=== PATIENT | female | born 1985 | race Caucasian/White ===

== ENCOUNTER → 2021-10-25 00:01 | Outpatient (CLI) | payer OTHER, SELFPAY ==
[2021-10-25 16:46] LABS: SARS-CoV-2 RNA PCR Negative
== END ==
PROVIDERS: Visit Provider Obstetrics & Gynecology Gynecologic Oncology
DX: Z01.812 Encounter for preprocedural laboratory examination (principal); Z20.822 Contact with and (suspected) exposure to COVID-19
CPT/HCPCS: C9803; U0003; U0005

== ENCOUNTER 2021-10-25 09:02 | Outpatient (CLI) | payer OTHER, SELFPAY ==
[2021-10-25 09:53] LABS: Hematocrit 43.4 % (37.0-47.0); Hemoglobin 14.1 g/dL (12.0-15.0); Mean Corpuscular HGB Conc 32.5 g/dl (32-36); Mean Corpuscular Hemoglobin 29.5 pg (26-34); Mean Corpuscular Volume 90.8 fl (80-100); Mean Platelet Volume 9.7 fl (7.4-10.4); Platelet Count Result 282 k/mm3 (150-375); Red Blood Count 4.78 M/mm3 (4.2-5.4); Red Cell Distribution Width 12.6 % (11.5-14.5); White Blood Count 7.8 K/mm3 (4.5-10.0)
== END 2021-10-25 09:03 | disposition home or self-care (01) ==
LOC: ANHLAB 09:04
PROVIDERS: Visit Provider Obstetrics & Gynecology Gynecologic Oncology
DX: Z01.812 Encounter for preprocedural laboratory examination (principal)
CPT/HCPCS: 36415; 85027; 86850; 86900; 86901; C9803; U0003; U0005

== ENCOUNTER 2021-10-28 00:44 | Day surgery (SDC) | payer OTHER, SELFPAY ==
[2021-07-29 12:07] VITALS: BMI 41.3
--- NOTE | 2021-07-29 12:21 | PC.NURSE ---
Report to the Outpatient Waiting Room, entrance under the green pavilion located off [facility], at time 12:00 on date 08/05/21. OR Time: 2:00. - You and your visitor will be asked a series of questions to screen for COVID 19 for your protection. - A mask is required within the hospital. - Only one visitor is allowed at this time. Patient visitors will be guided where to wait when not with patient. Preoperative COVID Testing Requirements: No COVID Test needed if: (proof is required; if not received patient will have Rapid Test prior to entry) - Patient has received COVID Vaccine at least 14 days prior to procedure date or - Patient has positive COVID test result within last 90 days of surgery date. COVID Test needed if above criteria is not met If not COVID vaccinated a COVID test must be conducted within 72 hours of surgery and patient is asked to isolate self from time of testing until procedure. You will go to the [facility] for your COVID testing. The [facility] is located at the corner of [address] [facility]. COVID TEST 08/02 AT 9:30 You will only be called if COVID results are positive and your surgeon may reschedule your elective surgery date. Patients may have clear liquids (water, carbonated beverages, clear teas, apple juice) until 3 hours prior to surgery with a maximum of 20 ounces. - No food from midnight until time of surgery - Infants may have breast milk until 4 hours before surgery, infant formula 6 hours prior to surgery. - Children will be allowed to drink immediately following surgery. If applicable, please bring a bottle or sippy cup to assist with drinking. Juice, water, soda, and popsicles are readily available. For infants on formula, please bring formula the day of surgery. Pacifiers are allowed. Take the following medications with a SIP of water the morning of surgery: N/A Medications to discontinue per physician: N/A Date to take last dose: N/A Please no make-up, nail yakut, hairspray, perfume, deodorant, or body powder the day of surgery. No jewelry (including any body piercings) or valuables the day of surgery, leave them at home. Please take a shower or bath the night before, or the morning of, surgery with an antibacterial soap. Wear comfortable, loose fitting clothing. Children are encouraged to wear pajamas. - Jewelry must be removed prior to entering the operating room. Rings and piercings that are not removed may be cut off. - The hospital will not accept responsibility for valuables. - Please leave all valuables, including medications, at home the day of surgery. If you are going home after surgery, a licensed tractor driver must drive you home. - NO public transportation without another adult. - We recommend that an adult stay with you for 24 hours following discharge. - We also recommend that you do not drive, make important decision, drink alcoholic beverages, or take any drugs that were not prescribed by your health care provider for at least 24 hours after your discharge time. For Pediatric surgeries, we recommend two adults accompany the child home (only one inside the building at this time). Follow any additional instructions given to you from your surgeon. Telephone instructions given to JE MCGEE and asked if any additional questions and then verbalized understanding. Patient advised to call surgeon office or pre surgery nurse liaison [phone] if any additional questions.
[2021-10-21 09:37] VITALS: BMI 41.3
--- NOTE | 2021-10-21 09:43 | PC.NURSE ---
Report to the Outpatient Waiting Room, entrance under the green pavilion located off [facility], at time 10:00 on date 10/28/21. OR Time: 12:00. - You will be asked a series of questions to screen for COVID 19 for your protection. - A mask is required within the hospital. - One visitor is allowed at this time. Preoperative COVID Testing Requirements: COVID TEST 10/25 AT 9:30 No COVID Test needed if: (proof is required; if not received patient will have Rapid Test prior to entry) - Patient has received COVID Vaccine at least 14 days prior to procedure date or - Patient has positive COVID test result within last 90 days of surgery date. COVID Test needed if above criteria is not met If not COVID vaccinated a COVID test must be conducted within 72 hours of surgery and patient is asked to isolate self from time of testing until procedure. You will go to the [facility] for your COVID testing. The [facility] is located at the corner of [address] [facility]. You will only be called if COVID results are positive and your surgeon may reschedule your elective surgery date. Patients may have clear liquids (water, carbonated beverages, clear teas, apple juice) until 3 hours prior to surgery (9:00) with a maximum of 20 ounces. - No food from midnight until time of surgery Take the following medications with a SIP of water the morning of surgery: NADOLOL Medications to discontinue per physician: N/A Date to take last dose: N/A Please no make-up, nail english, hairspray, perfume, deodorant, or body powder the day of surgery. No jewelry (including any body piercings) or valuables the day of surgery, leave them at home. Please take a shower or bath the night before, or the morning of, surgery with an antibacterial soap. Wear comfortable, loose fitting clothing. - Jewelry must be removed prior to entering the operating room. Rings and piercings that are not removed may be cut off. - The hospital will not accept responsibility for valuables. - Please leave all valuables, including medications, at home the day of surgery. If you are going home after surgery, a licensed school bus driver/custodian must drive you home. - NO public transportation without another adult. - We recommend that an adult stay with you for 24 hours following discharge. - We also recommend that you do not drive, make important decision, drink alcoholic beverages, or take any drugs that were not prescribed by your health care provider for at least 24 hours after your discharge time. Follow any additional instructions given to you from your surgeon. Telephone instructions given to JE RICE and asked if any additional questions and then verbalized understanding. Patient advised to call surgeon office or pre surgery nurse liaison [phone] if any additional questions.
[2021-10-28] VITALS (9 sets, daily range): BP systolic 113–131; BP diastolic 68–78; PULSE 71–98; RESP 14–18; TEMP 36.3–36.9; O2SAT 92–100
[2021-10-28] MEDS: LACTATED RINGERS 1,000 ML 30 ML IV CONT ×2 (10:12→13:04)
--- NOTE | 2021-10-28 10:19 | WPDANESEPPF ---
Anes - Initial Pre Proc Eval Procedure: Operation Date: 10/28/21 12:00 Proposed Procedures p Diagnostic Laparoscopy, Bilateral Salpingectomy, - Ambar Nino DO s Hysteroscopy Dilation and Curettage with Novasure Endometrial Ablation - Ambar Nino DO Date/Time: 10/28/21 10:19 Surgeon: Ambar Nino DO Pre Op Diagnosis: desires sterilization Patient Data Age: 36 Gender: F Height: 1.59 m Weight: 99.6 kg Allergies Allergy/AdvReac Type Severity Reaction Status Date / Time No Known Allergies Allergy Verified 10/28/21 09:55 Home Medications Medication Instructions Recorded Confirmed Type ergocalciferol (vitamin D2) 1,250 mcg PO WEEKLY 10/21/21 10/28/21 History meloxicam 15 mg PO DAILY 10/21/21 10/28/21 History nadolol 20 mg PO DAILY 10/21/21 10/28/21 History Patient hx anesthesia problems: none Family hx anesthesia problems: none Results Review: All pre-operative results and documents have been reviewed as part of the pre-operative evaluation. [facility] Past Medical History Medical History (Updated 10/28/21 @ 10:20 by Justin Gonzalez MD) Asthma Obesity Surgical History Surgical History (Updated 10/28/21 @ 10:21 by Justin Gonzalez MD) History of cholecystectomy Hx of tonsillectomy Social History Social History Smoking status: Never smoker Alcohol intake: never Substance use: never Substance use type: does not use Living arrangements: with family Spiritual care concerns: No Anes - Eval Final PreProcedure Day of Procedure 10/28/21 10:19 Patient weight: obese Heart: regular rate and rhythm Lungs: clear to auscultation Airway: Mallampati scale class II Neurological: alert and oriented Last oral intake: >/= 8 hours ASA classification: III Emergent: no Anesthetic plan: proceed Anesthesia type and monitoring: general ETT and standard monitoring Results Review: All pre-operative results and documents have been reviewed as part of the pre-operative evaluation. Informed Consent: The patient's anesthetic plan and its attendant risks and benefits were discussed with the patient/family/POA. Questions were solicited and answers provided to the satisfaction of the patient/family/POA.
[2021-10-28] MEDS: ACETAMINOPHEN 500 MG TABLET 1000 MG PO (10:23)
[2021-10-28] MEDS: GABAPENTIN 300 MG CAPSULE PO (10:23)
--- NOTE | 2021-10-28 11:43 | PM.IMHP ---
H&P: HPI History of Present Illness Date/Time: 10/28/21 11:43 Chief Complaint: I'm here for my surgery Narrative: Patient presents for permanent sterilization with bilateral salpingectomy and control of menorrhagia with hysteroscopy, D&c, Novasure ablation. Review of Systems Review of Systems: All systems reviewed & are unremarkable except as noted in HPI and below PMFSH Past Medical History Medical History (Updated 10/28/21 @ 11:44 by Ambar Nino DO) Asthma Obesity Surgical History Surgical History (Updated 10/28/21 @ 10:21 by Justin Gonzalez MD) History of cholecystectomy Hx of tonsillectomy Social History Social History Smoking status: Never smoker Alcohol intake: never Substance use: never Substance use type: does not use Living arrangements: with family Spiritual care concerns: No Meds Home Medications and Allergies Home Medications Medication Instructions Recorded Confirmed Type ergocalciferol (vitamin D2) 1,250 mcg PO WEEKLY 10/21/21 10/28/21 History meloxicam 15 mg PO DAILY 10/21/21 10/28/21 History nadolol 20 mg PO DAILY 10/21/21 10/28/21 History Allergies Allergy/AdvReac Type Severity Reaction Status Date / Time No Known Allergies Allergy Verified 10/28/21 09:55 Vital Signs Vital Signs - 24 hr 10/28/21 10:34 Temperature 36.9 C Pulse Rate 85 Respiratory Rate 18 Blood Pressure 113/72 Pulse Oximetry 99 Exam Const: General: no acute distress Eyes: General: appearance normal, both eyes and all related structures Resp: Effort & Inspection: normal respiratory effort Auscultation: clear to auscultation bilaterally Cardio: Rate: regular rate Rhythm: regular rhythm GI: GI Palp: Yes Soft to palpation Percussion: Yes normal to percussion Auscultation: normal bowel sounds Skin: General skin exam: normal color and no rashes or lesions noted Neuro: General: gait normal Speech: normal speech Extrem: General: normal to inspection Psych: Mental Status: mental status grossly normal Assessment and Plan Assessment and plan (1) Sterilization: Code(s): Z30.2 - Encounter for sterilization Status: Acute (2) Menorrhagia: Code(s): N92.0 - Excessive and frequent menstruation with regular cycle Status: Acute
--- NOTE | 2021-10-28 11:44 | WPDHPUPDATE1 ---
History and Physical Update Update Date/Time: 10/28/21 11:44 History and Physical has been reviewed, including an updated exam of the patient. There are NO changes in the patient's condition. Risks, benefits, and alternatives have been discussed and questions answered. Patient agrees to proceed with procedure.
[2021-10-28] MEDS: KETOROLAC 15 MG/ML VIAL (*BKC) IV PUSH (12:38)
[2021-10-28] MEDS: BUPIVACAINE/EPINEPHRINE 0.25% 10 ML VIAL INFILTRATE (12:51)
--- NOTE | 2021-10-28 12:52 | SUR.OPER ---
novasure 4.5 length 2.6 width 64 power 1 minute 20 seconds
--- NOTE | 2021-10-28 13:08 | W.PM.PROC2 ---
Procedure Note - Detailed Date of Procedure 10/28/21 Pre-op Diagnosis Desires sterilization, Menorrhagia Post-op Diagnosis same Procedure Performed Diagnostic laparoscopy, bilateral salpingectomy, hysteroscopy, D&C, Novasure ablation. Surgeon Ambar Nino DO Front End Technician Krystal Anesthesia general Indications Sterilization, menorrhagia Findings Normal appearing vulva and vaginal canal. Normal cervix. The endometrial cavity was somewhat narrow but otherwise normal in appearance, no lesions noted. Both tubal ostia were visualized. Internally, the liver, omentum, and bowel appeared grossly normal. The sigmoid colon was physiologically adhered over the left pelvic brim. there were a few filmy omental adhesions in the right lower quadrant. Her uterus, bladder flap, posterior cul-de-sac, tubes and ovaries all appeared normal. Both tubes contained a 1cm or less paratubal cyst. Description of Procedure The patient was taken to the operating room where she was placed under general anesthesia, prepped and draped in the normal fashion in dorsal lithotomy position. A time-out was performed. No preoperative antibiotics were indicated. South catheter was placed. The cervix was visualized using a speculum and the anterior lip was grasped with a single-tooth tenaculum. The cervix was sequentially dilated up to accommodate a Kroner uterine manipulator. Once the manipulator was placed the tenaculum and speculum removed, gloves were changed and attention was then turned to the abdomen. The skin above the umbilicus was grasped with 2 penetrating towel clamps and the skin was injected with local. Small incision was made with scalpel and a Veress needle was introduced. The saline water drop test was performed to confirm intraperitoneal placement. CO2 insufflation was started and the abdomen was brought up to a filling pressure of 15 mmHg. The Veress needle was then replaced with a 5 mm Optiview trocar which was inserted under direct visualization. Survey of the abdomen revealed no evidence of bowel or vascular injury. The patient was then placed in steep Trendelenburg position. Additional trocar sites in the right and left lower quadrants were identified, injected, incised and 5 mm trocars were introduced under direct visualization. The filmy and omental adhesions in the right lower quadrant were taken down with blunt and sharp dissection using the LigaSure. The right tube was then elevated, cauterized and transected off using the LigaSure. It was handed off through the assistant producer port. The adhesions from the sigmoid colon to left pelvic brim were taken down using blunt and sharp dissection to further isolate the left adnexa. The left tube was then elevated, cauterized and transected off. It was also handed off through the assistant producer port. All surgical pedicles were reinspected and found to be hemostatic. The CO2 insufflation was allowed to escape and the trocars were removed. The abdominal incisions were closed with 4 O Monocryl in a subcuticular fashion. The incisions were covered with Steri-Strips and Mastisol. We then turned to the hysteroscopy portion of the procedure. The Kroner uterine manipulator was removed and the cervix was regrasped with a single-tooth tenaculum. It was dilated up to accommodate the hysteroscope. The scope was introduced and a survey of the endometrial cavity revealed the above-mentioned findings. The endometrial cavity and cervical lengths were measured. The NovaSure device was then introduced. The cavity length was 4.5 cm, the cavity width was 2.7 cm. The device was activated at 64 w for 1 minutes and 20 seconds. The device was then retracted into the insertion catheter and allowed to cool. All instruments were removed from the vagina and it was wiped clean of blood clots and fluid. The cervix tenaculum sites were noted to be hemostatic. Patient was taken to the recovery room in stable condition. All instrument and sponge co
[2021-10-28] MEDS: fentaNYL CITRATE INJ (*CRX) 100 MCG/2 ML VIAL 25 MCG IV PUSH ×2 (13:22→13:39)
== END 2021-10-28 15:04 | disposition home or self-care (01) ==
PROVIDERS: PCP Family Medicine; Visit Provider Obstetrics & Gynecology Gynecologic Oncology
PROC: (CPT 49320; principal; 2021-10-28 12:00)
PROC: 0U5B8ZZ Destruction of Endometrium, Via Natural or Artificial Opening Endoscopic (ICD-10-PCS; CPT 58563; 2021-10-28 12:00)
DX: Z30.2 Encounter for sterilization (principal); N92.0 Excessive and frequent menstruation with regular cycle; N83.8 Other noninflammatory disorders of ovary, fallopian tube and broad ligament; N73.6 Female pelvic peritoneal adhesions (postinfective); E66.9 Obesity, unspecified; Z68.39 Body mass index [BMI] 39.0-39.9, adult
CPT/HCPCS: 58661; 58563; 88302; A9270; J1100; J1170; J1885; J2250; J2405; J2704; J2710; J3010; J7030; J7120